=== PATIENT | female | born 1965 | race Two or more races ===

== ENCOUNTER 2017-12-31 01:03 | Emergency (ER) | payer OTHER ==
[~2017-12-31] VITALS: Ht 167.6 cm; Wt 83.9 kg
[2017-12-31] MEDS: HYDROcodone/APAP 5/325MG 1 TAB TABLET PO ONE (01:47)
[2017-12-31] MEDS: DIPHTH,PERTUSS(ACELL),TET TOX 0.5 ML DISP.SYRIN. VAX IM ONE (01:48)
--- NOTE | 2017-12-31 02:07 | RAD ---
PQRS Compliance Statement: One or more of the following individualized dose reduction techniques were utilized for this examination: 1. Automated exposure control 2. Adjustment of the mA and/or kV according to patient size 3. Use of iterative reconstruction technique CT HEAD, MAXILLOFACIAL, AND CERVICAL SPINE WITHOUT CONTRAST History: pain after pt fell to head/neck, facial trauma. Loss of consciousness. Comparison: None. Procedure: Axial images are obtained of the head from the skull base through the vertex without IV contrast. Noncontrast helical CT of the cervical spine was performed. Axial, sagittal, and coronal reconstructions were obtained. Helical CT imaging of the facial bones is performed without IV contrast. Findings: The ventricles and sulci are normal for the patient's age. No mass-effect, midline shift, hemorrhage or obvious acute infarction is identified. Basilar cisterns are patent. Bone windows demonstrate no significant calvarial abnormality. No acute facial bone fracture. Mild mucosal thickening bilateral maxillary sinuses and bilateral ethmoid sinuses. There is no air-fluid level. The orbital floors are intact. There is opacification of right mastoid air cells. There is no evidence of acute fracture or acute malalignment of the cervical spine. The vertebral body height and alignment are maintained. No perched or jumped facets. Facets are mildly hypertrophic. Central canal without high-grade narrowing. Visualized soft tissues of the neck demonstrate no significant abnormalities. The visualized lung apices are clear. IMPRESSION: 1. No acute intracranial abnormality. 2. No acute fracture of the cervical spine. 3. No acute facial bone fracture. Electronically signed by: Alejandro Banda MD (12/31/2017 2:04 AM) [id number]
[2017-12-31 02:43] VITALS: BP 118/70
[2017-12-31] MEDS ORDERED: HYDR-971 PO (02:56)
[2017-12-31] MEDS ORDERED: IBUP-1060 PO (02:56)
--- NOTE | 2017-12-31 04:02 | PHYS DOC ---
Past Medical History Past Medical History: No Pertinent History Past Surgical History: Hysterectomy Alcohol Use: None Drug Use: None Adult General Chief Complaint Chief Complaint: MULTIPLE TRAUMA/FALL HPI HPI Patient is a 52 year old female who presents after a fall. Patient was at work earlier this evening. She states she was carrying a heavy object when she tripped over another object that was on the floor. She fell to the ground striking the right side of her head on the concrete. She states she did have some loss of consciousness. She presents to the ER complaining of facial pain and diffuse headache. She also had some minor pain to the right arm and forearm. She is uncertain when her last tetanus shot was. She has had known nausea or vomiting. Denies vision changes. No focal neurologic complaints. Review of Systems Review of Systems Constitutional: Denies fever or chills Eyes: Denies change in visual acuity, redness, or eye pain HENT: Denies nasal congestion or sore throat Respiratory: Denies cough or shortness of breath Cardiovascular: No additional information not addressed in HPI GI: Denies abdominal pain : Denies dysuria or hematuria Musculoskeletal: Denies back pain Integument: Denies rash or skin lesions Neurologic: no focal neuro complaints Endocrine: Denies polyuria or polydipsia All other systems were reviewed and found to be within normal limits, except as documented in this note. Current Medications Current Medications Current Medications Medications (Trade) Dose Ordered Sig/Patricia Start Time Stop Time Status Last Admin Dose Admin Acetaminophen/ Hydrocodone Bitart (Lortab 5/325) 2 tab 1X ONCE 12/31/17 01:45 12/31/17 01:46 DC 12/31/17 01:47 2 TAB Diphtheria/ Tetanus/Acell Pertussis (Boostrix) 0.5 ml ONCE ONCE 12/31/17 01:45 12/31/17 01:46 DC 12/31/17 01:48 0.5 ML Allergies Allergies Allergies Coded Allergies Type Severity Reaction Last Updated Verified No Known Drug Allergies 12/31/17 No Physical Exam Physical Exam Constitutional: Well developed, well nourished, no acute distress, non-toxic appearance HENT: Normocephalic, minor abrasion/contusion over the right orbit Eyes: PERRLA, EOMI, conjunctiva normal, no discharge Neck: Normal range of motion, mild TTP over posterior midline and paraspinal muscles Cardiovascular:Heart rate regular rhythm, no murmur Lungs & Thorax: Bilateral breath sounds clear to auscultation Abdomen: Bowel sounds normal, soft, no tenderness Skin: Warm, dry, no erythema Back: No tenderness, no CVA tenderness Extremities: minor abrasions/ecchymosis over right forearm but no significant pain to palpation over the bony structures. + full passive ROM at elbow, shoulder, wrist w/o pain Neurologic: Alert and oriented X 3, normal motor function, normal sensory function Psychologic: Affect normal Current Patient Data Vital Signs Vital Signs Date Time Temp Pulse Resp B/P (MAP) Pulse Ox O2 Delivery O2 Flow Rate FiO2 12/31/17 02:43 75 24 118/70 (86) 98 Room Air 12/31/17 01:03 98.0 98.0 EKG EKG [] Radiology/Procedures Radiology/Procedures Findings: The ventricles and sulci are normal for the patient's age. No mass-effect, midline shift, hemorrhage or obvious acute infarction is identified. Basilar cisterns are patent. Bone windows demonstrate no significant calvarial abnormality. No acute facial bone fracture. Mild mucosal thickening bilateral maxillary sinuses and bilateral ethmoid sinuses. There is no air-fluid level. The orbital floors are intact. There is opacification of right mastoid air cells. There is no evidence of acute fracture or acute malalignment of the cervical spine. The vertebral body height and alignment are maintained. No perched or jumped facets. Facets are mildly hypertrophic. Central canal without high-grade narrowing. Visualized soft tissues of the neck demonstrate no significant abnormalities. The visualized lung apices are clear. IMPRESSION: 1. No acute intracranial abnormality. 2. No acute fracture of the cervical spine. 3. No acute facial bone fracture. Course & Med Decision Making Course & Med Decision Making Pertinent Labs and Imaging studies reviewed. (See chart for details) Patient was evaluated in the ER after a fall. She did not have any red flags in the history of present illness or on her physical exam. In the ER, she underwent CT scan of the head, face, C-spine. There were no acute findings. She was given 2 [place] for pain which did adequately relieve her pain symptoms. Patient was accompanied by her this evening who is driving her home. She was discharged home and given ibuprofen and [place] for severe pain. Opiate precautions were discussed. She was given a work release to be off tonight in case she needs to use her pain medications. All of her questions were answered prior to discharge home and she was agreeable to the plan of care. Yari Disclaimer Yari Disclaimer This electronic medical record was generated, in whole or in part, using a voice recognition dictation system. Departure Departure Impression: Primary Impression: Facial trauma Additional Impression: Head injury Disposition: HOME, SELF-CARE Condition: GOOD Patient Instructions: Head Injury, Adult, [id number], Facial or Scalp Contusion, Pain Medicine Instructions, [place] Scripts Hydrocodone/Apap 5-325 (NORCO 5-325 TABLET) 1 Each Tablet 1-2 EACH PO PRN Q6HRS PRN for severe pain, #15 as needed for pain Prov: ANNA MARIE BALBUENA DO 12/31/17 Ibuprofen (IBUPROFEN) 800 Mg Tablet 800 MG PO PRN TID PRN for PAIN, #20 TAB take with food or milk to avoid upsetting stomach Prov: ANNA MARIE BALBUENA DO 12/31/17 Problem Qualifiers ANNA MARIE BALBUENA DO Dec 31, 2017 04:02
== END 2017-12-31 03:14 | disposition home or self-care (01) ==
LOC: ER 01:03
DX: S05.11XA Contusion of eyeball and orbital tissues, right eye, initial encounter (principal); S50.11XA Contusion of right forearm, initial encounter; W01.198A Fall on same level from slipping, tripping and stumbling with subsequent striking against other object, initial encounter; Y93.89 Activity, other specified; Y92.89 Other specified places as the place of occurrence of the external cause; Y99.8 Other external cause status
CPT/HCPCS: 70450; 70486; 72125; 90471; 90715; 99284-25